=== PATIENT | male | born 1995 | race Two or more races ===

== ENCOUNTER 2017-01-16 13:55 | Emergency (ER) | payer MEDICAID ==
[~2017-01-16] VITALS: Ht 190.5 cm; Wt 97.5 kg
[2017-01-16 14:59] LABS: Basophils # (auto) 0.1 uL; Basophils % (auto) 1.2 % (0.0-2.0); CONDITION Y; Eosinophils # (auto) 0.3 uL; Hematocrit 52.3 % (41.0-53.0); Hemoglobin 17.6 g/dL (13.5-17.5); Lymphocytes % (auto) 35.3 % (10.0-50.0); Mean Corpuscular Hemoglobin 30.2 pg (28.0-32.0); Mean Corpuscular Hgb Conc. 33.7 g/dL (32.0-36.0); Mean Corpuscular Volume 89.6 fL (80.0-100.0); Mean Platelet Volume 10.3 fL (7.4-10.4); Monocytes # (auto) 0.5 uL; Monocytes % (auto) 9.5 % (0.0-12.0); Neutrophils # (auto) 2.7 uL; Platelet Count (auto) 241 10^3/uL (140-450); Red Cell Distribution Width 12.7 % (11.6-16.0); SUSPECT SEE PRINTOUT; White Blood Cell 5.7 10^3/uL (4.4-10.8)
[2017-01-16 15:14] LABS: Albumin 4.4 g/dL (3.4-5.0); BUN/Creatinine Ratio 8.7; Bilirubin, Total 0.7 mg/dL (0.2-1.0); Calcium 9.6 mg/dL (8.5-10.1); Potassium 3.9 mmol/L (3.5-5.1); Total Protein 8.3 g/dL (6.4-8.2)
[2017-01-16 15:21] VITALS: BP 146/78
== END 2017-01-16 17:49 | disposition home or self-care (01) ==
LOC: ER 13:55
DX: K52.9 Noninfective gastroenteritis and colitis, unspecified (principal); A07.1 Giardiasis [lambliasis]; K90.9 Intestinal malabsorption, unspecified
CPT/HCPCS: 36415; 80053; 82150; 83690; 85025

== ENCOUNTER 2017-01-22 04:53 | Emergency (ER) | payer MEDICAID ==
[~2017-01-22] VITALS: Ht 190.5 cm; Wt 95.3 kg
[2017-01-22 05:05] VITALS: BP 188/105
[2017-01-22 05:57] LABS: Basophils # (auto) 0 uL; Basophils % (auto) 0.4 % (0.0-2.0); CONDITION Y; Eosinophils # (auto) 0.2 uL; Eosinophils % (auto) 1.7 % (0.0-7.0); Hematocrit 49.3 % (41.0-53.0); Hemoglobin 16.9 g/dL (13.5-17.5); Lymphocytes # (auto) 1.9 uL; Lymphocytes % (auto) 18.1 % (10.0-50.0); Mean Corpuscular Hemoglobin 30.7 pg (28.0-32.0); Mean Corpuscular Hgb Conc. 34.2 g/dL (32.0-36.0); Mean Corpuscular Volume 89.8 fL (80.0-100.0); Mean Platelet Volume 10.5 fL (7.4-10.4); Monocytes # (auto) 0.8 uL; Monocytes % (auto) 7.5 % (0.0-12.0); Neutrophils # (auto) 7.6 uL; Neutrophils % (auto) 72.3 % (37.0-80.0); Platelet Count (auto) 241 10^3/uL (140-450); SUSPECT SEE PRINTOUT; White Blood Cell 10.5 10^3/uL (4.4-10.8)
[2017-01-22 06:14] LABS: Albumin 4.1 g/dL (3.4-5.0); BUN/Creatinine Ratio 10.2; Calcium 9.1 mg/dL (8.5-10.1); Potassium 3.7 mmol/L (3.5-5.1)
[2017-01-22 06:16] LABS: Bilirubin, Total 0.4 mg/dL (0.2-1.0); Total Protein 7.7 g/dL (6.4-8.2)
== END 2017-01-22 08:44 | disposition left against medical advice (07) ==
LOC: ER 04:53
DX: R10.9 Unspecified abdominal pain (principal); Z53.21 Procedure and treatment not carried out due to patient leaving prior to being seen by health care provider
CPT/HCPCS: 36415; 80053; 82150; 83690; 85025